=== PATIENT | female | born 1960 | race Caucasian/White ===

== ENCOUNTER 2016-08-20 03:02 | Observation (INO) | payer BC ==
[~2016-08-20] VITALS: Ht 165.1 cm; Wt 75.0 kg
[~2016-08-20 03:02] MED LIST: ASPEC81 PO; CALCTAB13 PO; CHOL400C7 PO; ELET40TA PO; FISHOIL PO; GLIP10TA9 PO; GLIP5TAB3 PO; METF750T PO; MULTTAB58 PO; SYN75 PO; TRAZ150T64 PO
[2016-08-20] MEDS ORDERED: ASPIRIN 324 MG CHEW PO STA (03:15)
[2016-08-20] MEDS ORDERED: NITROGLYCERIN 0.4 MG SL PER TAB CHARGE SL PRN ×2 (03:15→07:45)
[2016-08-20] MEDS ORDERED: NITROGLYCERIN 0.4 MG SL PER TAB CHARGE SL STA (03:15)
--- NOTE | 2016-08-20 03:28 | EMERGENCY ROOM VISIT NOTE ---
History Report prepared by Debbi: Xavier Jansen Under the Supervision of: Dr. Tyree Cuadra M.D. First contact with patient: 03:06 Chief Complaint: CHEST PAIN Stated Complaint: CHEST PAIN Nursing Triage Summary: c/o mid cp that when she woke around midnight she took tums for, then she went back to sleep and woke again and took more tums. pain has not went away History of Present Illness The patient is a 56 year old female who presents to the Emergency Room with complaints of persistent chest pain that started a few hours ago. The patient notes that she woke up on the couch and felt some discomfort in the center of her chest that radiated to the side of her chest. She took Tums thinking she might have some indigestion. She notes when she sometimes gets indigestion, Tums usually helps. However, they did not help relieve her symptoms this morning. She also notes that she was feeling shaky and cold and decided to present to the ED for further evaluation. She describes the discomfort as a pressure with intermittent sharp pains. She notes the discomfort is worsened with deep breaths. She notes recent travel to [place] and [facility]. Her mother has a history of blood clots, but the patient has no history. Source of History: patient Onset: a few hours ago Position: chest Quality: pressure, sharp (intermittently) Timing: other (persistent) Modifying Factors (Worsening): breathing (deep breaths) Note: Other associated symptoms: shaky and cold Review of Systems See HPI for pertinent positives & negatives. A total of 10 systems reviewed and were otherwise negative. Past Medical & Surgical Medical Problems: (1) Diab Almita Wo Compl, Type Ii Or Unspec Type, Not Uncntrld (2) Endometriosis (3) Fibromyalgia (4) Migraines Surgical Problems: (1) H/O breast biopsy (2) H/O: hysterectomy Family History Cancer Social History Smoking Status: Never Smoker Alcohol Use: occasionally Marital Status: Occupation Status: employed Current/Historical Medications Scheduled Aspirin (Aspirin Ec), 81 MG PO DAILY Calcium/Vitamin D (Os-Yair 500 Plus D), 2 TAB PO DAILY Cholecalciferol (Vitamin D 400 Iu), 400 INTER.UNIT PO DAILY Eletriptan (Relpax), 40 MG PO DIRECTED Fish Oil ([place]-3), 1 CAP PO DAILY Glipizide (Glucotrol), 5 MG PO prior to dinner Glipizide (Glucotrol), 10 MG PO before breakfast Levothyroxine Sodium (Synthroid), 75 MCG PO DAILY Meloxicam (Meloxicam), 15 MG PO DAILY Metformin Hcl (Glucophage Er), 1,500 MG PO BID Multiple Vitamin (Multivitamin), 1 TAB PO DAILY Scheduled PRN Trazodone HCl (Trazodone HCl), 75 MG PO HS PRN for Sleep Allergies Coded Allergies: Latex1 -Allergic Contact Dermititis (Verified Allergy, Unknown, RED ALBARADO , 08/20/16) Lidocaine (Verified Allergy, Unknown, "NOVOCAINE", 08/20/16) Morphine and Related (Verified Allergy, Unknown, GI SYMPTOMS, 08/20/16) Procaine (Verified Allergy, Unknown, "NOVOCAINE", 08/20/16) Sulfa Drugs (Verified Allergy, Unknown, 08/20/16) Uncoded Allergies: NARCOTICS (Adverse Reaction, Intermediate, GI SYMPTOMS, 07/22/12) CAUSES N/V Physical Exam Vital Signs Date Time Temp Pulse Resp B/P Pulse Ox O2 Delivery O2 Flow Rate FiO2 08/20/16 05:02 78 18 100 Room Air 08/20/16 04:58 96/62 08/20/16 04:32 78 13 08/20/16 04:28 110/59 08/20/16 04:02 78 15 08/20/16 03:58 128/58 08/20/16 03:51 129/67 08/20/16 03:32 96 10 08/20/16 03:25 81 08/20/16 03:08 36.6 87 10 158/79 96 Room Air 08/20/16 03:08 158/79 Physical Exam GENERAL: Patient is in mild distress, anxious-appearing. HEENT: No acute trauma, normocephalic atraumatic, mucous membranes moist, no nasal congestion, no scleral icterus. NECK: No stridor, no adenopathy, no meningismus, trachea is midline. LUNGS: No dyspnea. Clear to auscultation and equal bilaterally. No wheeze, no rhonchi. HEART: Regular rate and rhythm. No murmurs, rubs, gallops appreciated. ABDOMEN: Soft, nontender, bowel sounds positive, no masses appreciated, no peritonitis. BACK: No midline tenderness, no CVA tenderness EXTREMITIES: Normal motion all extremities, no cyanosis, no edema. NEUROLOGIC: Alert and oriented, no acute motor or sensory deficits, no focal weakness, cranial nerves grossly intact. SKIN: No rash, no jaundice, no diaphoresis. Medical Decision & Procedures ER Provider Diagnostic Interpretation: X ray results are stated below per my interpretation and the radiologist's interpretation. X ray results are stated below per my interpretation: Chest: 1 view: No infiltrate, no effusion, normal cardiac border. CTA CHEST: No evidence of acute pulmonary embolism. Thoracic aortic and main pulmonary artery normal in caliber. Heart normal in size, without pericardial effusion. Multicompartment mediastinal adenopathy. Clear lungs, without consolidation, effusion, or pneumothorax. Visualized upper abdomen demonstrates prior cholecystectomy. No acute osseous findings. Laboratory Results 08/20/16 03:21 Red Blood Count 4.61, Mean Corpuscular Volume 85.7, Mean Corpuscular Hemoglobin 29.7, Mean Corpuscular Hemoglobin Concent 34.7, Mean Platelet Volume 11.0, Neutrophils (%) (Auto) 47.1, Lymphocytes (%) (Auto) 39.9, Monocytes (%) (Auto) 8.2, Eosinophils (%) (Auto) 4.0, Basophils (%) (Auto) 0.4, Neutrophils # (Auto) 3.32, Lymphocytes # (Auto) 2.81, Monocytes # (Auto) 0.58, Eosinophils # (Auto) 0.28, Basophils # (Auto) 0.03 08/20/16 03:21 Test 08/20/16 03:21 08/20/16 04:17 White Blood Count 7.05 K/uL (4.8-10.8) Red Blood Count 4.61 M/uL (4.2-5.4) Hemoglobin 13.7 g/dL (12.0-16.0) Hematocrit 39.5 % (37-47) Mean Corpuscular Volume 85.7 fL (80-100) Mean Corpuscular Hemoglobin 29.7 pg (25-34) Mean Corpuscular Hemoglobin Concent 34.7 g/dl (32-36) Platelet Count 198 K/uL (130-400) Mean Platelet Volume 11.0 fL (7.4-10.4) Neutrophils (%) (Auto) 47.1 % Lymphocytes (%) (Auto) 39.9 % Monocytes (%) (Auto) 8.2 % Eosinophils (%) (Auto) 4.0 % Basophils (%) (Auto) 0.4 % Neutrophils # (Auto) 3.32 K/uL (1.4-6.5) Lymphocytes # (Auto) 2.81 K/uL (1.2-3.4) Monocytes # (Auto) 0.58 K/uL (0.11-0.59) Eosinophils # (Auto) 0.28 K/uL (0-0.5) Basophils # (Auto) 0.03 K/uL (0-0.2) RDW Standard Deviation 37.0 fL (36.4-46.3) RDW Coefficient of Variation 11.9 % (11.5-14.5) Immature Granulocyte % (Auto) 0.4 % Immature Granulocyte # (Auto) 0.03 K/uL (0.00-0.02) Anion Gap 11.0 mmol/L (3-11) Est Creatinine Clear Calc Drug Dose 64.4 ml/min Estimated GFR () 73.5 Estimated GFR (Non- 63.4 BUN/Creatinine Ratio 18.5 (10-20) Calcium Level 9.6 mg/dl (8.5-10.1) Total Creatine Kinase 70 U/L (26-192) Creatine Kinase MB 1.2 ng/ml (0.5-3.6) Creatine Kinase MB Ratio 1.7 (0-3.0) Troponin I < 0.015 ng/ml (0-0.045) Beta-Hydroxybutyric Acid 1.84 mg/dL (0.2-2.81) D-Dimer < 190 ug/L FEU (0-500) Laboratory results as reviewed by me. Medications Administered Medications (Trade) Dose Ordered Sig/Vivian Route Start Time Stop Time Status Last Admin Dose Admin Aspirin (Aspirin Chew) 324 mg NOW STAT PO 08/20/16 03:15 08/20/16 03:17 DC 08/20/16 03:15 324 MG Nitroglycerin (Nitrostat Tab) 0.4 mg PRN STAT SL 08/20/16 03:15 08/20/16 03:17 DC 08/20/16 03:15 0.4 MG Fentanyl Citrate (Fentanyl Inj) 75 mcg NOW STAT IV 08/20/16 03:39 08/20/16 03:41 DC 08/20/16 03:39 75 MCG Insulin Human Regular 4 units 4 units NOW STAT IV 08/20/16 04:42 08/20/16 04:43 DC 08/20/16 05:02 4 UNITS Sodium Chloride (Nss 1000ml) 1,000 ml @ 999 mls/hr Q1H1M STAT IV 08/20/16 04:42 08/20/16 05:42 DC 08/20/16 05:04 999 MLS/HR ECG Indication: chest pain Rate (beats per minute): 75 Rhythm: normal sinus Findings: no acute ischemic change, no ectopy Change: no significant change (similar morphology when compared to previous EKG ) ED Course 0310: The patient was evaluated in room B2. A complete history and physical exam was performed. 0315: Ordered Nitroglycerin 0.4 mg SL, Nitroglycerin 0.4 mg SL/ Chest pain, Aspirin 324 mg PO. 0337: At this time, I reevaluated the patient and she said she had an allergic reaction to the Nitro. She notes that her heart raced and she had tingling under her tongue. 0339: Ordered Fentanyl Inj 75 mcg IV. 0441: At this time, I reevaluated the patient and she feels much better. She notes her sugar has not been high recently and was surprised with the test results. 0442: Ordered NSS 1000 ml @ 999 mls/hr IV, Insulin Human Regular 4 units IV. 0524: I reevaluated the patient at this time and she is feeling better and in no distress. 0547: At this time, Dr. Madison - Hospitalist [facility] was made aware of the case and accepted the patient for further evaluation. Medical Decision Differential: Cardiac Ischemia (STEMI, NSTEMI, Unstable Angina, etc), Aortic Dissection, Arrhythmia, Pulmonary Embolism, Pneumonia, Pneumothorax, MSK, Infectious, Pericarditis/Myocarditis, Esophageal Rupture, Gastrointestinal, amongst other pathologies entertained. 56 yr old female arrives for substernal chest pain. Given ASA. Notes she can not tolerate another SLNTG after first dose thus given Fentanyl with resolution of symptoms. Already tried multiple Tums without any improvement. EKG looks OK and trop negative to start. Dimer negative thus with normal CXR and no further symptoms I do not feel that CT PE study necessary currently She is stable throughout ED stay. With multiple cardiac risk factors she will need further cardiac rule out than possible in ED. Consults Time Called: 05 Consulting Physician: Dr. Madison - Hospitalist [facility] Returned Call: [phone] At this time, Dr. Madison was made aware of the case and accepted the patient for further evaluation. Impression Primary Impression: Substernal chest pain Additional Impression: Hyperglycemia Scribe Attestation The scribe's documentation has been prepared under my direction and personally reviewed by me in its entirety. I confirm that the note above accurately reflects all work, treatment, procedures, and medical decision making performed by me. Departure Information Dispostion Being Evaluated By Hospitalist Referrals Enid Huerta D.O. (PCP) Patient Instructions [facility] Problem Qualifiers
[2016-08-20 03:29] LABS: BASO % 0.4 %; BASO ABS # 0.03 K/uL (0-0.2); COMPLETE YES; HEMATOCRIT 39.5 % (37-47); IG% 0.4 %; LYMPH % 39.9 %; LYMPH ABS # 2.81 K/uL (1.2-3.4); MEAN CELL VOLUME 85.7 fL (80-100); MEAN CORPUSCULAR HEMOGLOBIN 29.7 pg (25-34); MEAN CORPUSCULAR HGB CONC 34.7 g/dl (32-36); MONO % 8.2 %; NEUT % 47.1 %; PLATELET COUNT 198 K/uL (130-400); RED BLOOD COUNT 4.61 M/uL (4.2-5.4); WHITE BLOOD COUNT 7.05 K/uL (4.8-10.8)
[2016-08-20] MEDS ORDERED: FENTANYL CITRATE INJ 50 MCG/1 ML 2 ML VIAL IV STA (03:39)
[2016-08-20 04:02] LABS: BLOOD UREA NITROGEN 19 mg/dl (7-18); BUN/CREATININE RATIO 18.5 (10-20); CALCIUM 9.6 mg/dl (8.5-10.1); CARBON DIOXIDE 27 mmol/L (21-32); CHLORIDE 99 mmol/L (98-107); GLUCOSE 338 mg/dl (70-99); POTASSIUM 4.2 mmol/L (3.5-5.1); SODIUM 137 mmol/L (136-145)
[2016-08-20 04:13] LABS: BETA-HYDROXYBUTYRATE 1.84 mg/dL (0.2-2.81); CKMB/CK RATIO 1.7 (0-3.0)
[2016-08-20] MEDS ORDERED: MELO15TA4 PO (04:30)
[2016-08-20] MEDS ORDERED: SYN75 PO (04:30)
[2016-08-20] MEDS ORDERED: DSY/150 PO (04:30)
[2016-08-20] MEDS ORDERED: ASPI81TA28 PO (04:31)
[2016-08-20] MEDS ORDERED: OMEG10007 PO (04:31)
[2016-08-20] MEDS ORDERED: CALC500C70 PO (04:31)
[2016-08-20] MEDS ORDERED: NovoLIN-R INSULIN PER UNIT CHARGE IV STA (04:42)
[2016-08-20] MEDS ORDERED: SODIUM CHLORIDE 0.9% 1000ML 1,000 ML IV STA (04:42)
[2016-08-20] MEDS ORDERED: OPTIRAY 320 IV PRN (05:45)
[2016-08-20] MEDS ORDERED: POLYETHYLENE (MIRALAX) 17 GM PACK PO PRN (07:45)
[2016-08-20] MEDS ORDERED: ONDANSETRON INJ 2 MG/ML 2 ML VIAL IV PRN (07:45)
[2016-08-20] MEDS ORDERED: ALUMINUM/MAGNESIUM/SIMETH (MAALOX MAX) 30 ML UDC PO PRN (07:45)
[2016-08-20] MEDS ORDERED: ACETAMINOPHEN 325 MG TAB PO PRN (07:45)
[2016-08-20] MEDS ORDERED: MAGNESIUM HYDROXIDE SUSP 30 ML UDC PO PRN (07:45)
[2016-08-20 07:50] VITALS: O2SAT 100; Ht 165.1 cm; Wt 75.0 kg
--- NOTE | 2016-08-20 07:55 | History and Physical ---
History & Physical Date & Time of Service: Aug 20, 2016 at 07:52 Chief Complaint: Chest Pain Primary Care Physician: Enid Huerta D.O. History of Present Illness Source: patient Ms. Blair is a 56 y/o female with PMHx of T2DM, Hypothyroidism, and S/P Cholecystectomy who presents to the ED complaining of persistent chest pain that started at approx. midnight on 08/20/16. She states she fell asleep on her couch and was sleeping with head elevated. When she woke up she noticed sternal chest pain with slight radiation to the R chest. She describes this pain as a pressure with intermittent sharp sensations. She says this felt like her normal indigestion and took Tums but did not get relief. She reports that she only needs Tums with indigestion in the past and these resolve the symptoms. She denies frequent heartburn. Aggravated with deep inspiration but cannot recall alleviating factors. When her symptoms did not resolve with Tums she decided to proceed to the ED. She does report associated feelings of cold and shakiness. She also reports this sensation is similar but not exact to the feelings she got prior to her cholecystectomy. She did recently travel to [place] and back. She says she did not have foods that normally cause her indigestion and does not report a missed dose of her oral anti-diabetics. She denies personal history of blood clots but FMHx significant for a mother with blood clots. In the ED, she was given NTG and ASA 324 mg. CXR without significant findings there is evidence of prominent hilar/pulmonary nodes which looks similar to previous CXR. CTA performed which does not show overt signs of PE but official report pending. EKG with NSR without evidence of ischemia. Glucose noted at 338 which she reports is not normally this high. She will be admitted to telemetry for ACS R/O. Past Medical/Surgical History Medical Problems: (1) Diab Almita Wo Compl, Type Ii Or Unspec Type, Not Uncntrld Status: Chronic (2) Endometriosis Status: Resolved (3) Fibromyalgia Status: Chronic (4) Migraines Status: Chronic Surgical Problems: (1) H/O breast biopsy Status: Resolved (2) H/O: hysterectomy Status: Resolved Family History Cancer Social History Smoking Status: Never Smoker Smokeless Tobacco Use: No Alcohol Use: socially Drug Use: none Marital Status: Housing status: lives with family Occupational Status: employed Immunizations History of Influenza Vaccine: Yes History of Tetanus Vaccine?: Yes History of Pneumococcal: No History of Hepatitis B Vaccine: Yes Multi-Drug Resistant Organisms History of MDRO: No Allergies Coded Allergies: Latex1 -Allergic Contact Dermititis (Verified Allergy, Unknown, RED ALBARADO , 08/20/16) Lidocaine (Verified Allergy, Unknown, "NOVOCAINE", 08/20/16) Morphine and Related (Verified Allergy, Unknown, GI SYMPTOMS, 08/20/16) Procaine (Verified Allergy, Unknown, "NOVOCAINE", 08/20/16) Sulfa Drugs (Verified Allergy, Unknown, 08/20/16) Uncoded Allergies: NARCOTICS (Adverse Reaction, Intermediate, GI SYMPTOMS, 07/22/12) CAUSES N/V Home Medications Scheduled Aspirin (Aspirin Ec), 81 MG PO DAILY Calcium/Vitamin D (Os-Yair 500 Plus D), 2 TAB PO DAILY Cholecalciferol (Vitamin D 400 Iu), 400 INTER.UNIT PO DAILY Eletriptan (Relpax), 40 MG PO DIRECTED Fish Oil ([place]-3), 1 CAP PO DAILY Glipizide (Glucotrol), 5 MG PO prior to dinner Glipizide (Glucotrol), 10 MG PO before breakfast Levothyroxine Sodium (Synthroid), 75 MCG PO DAILY Meloxicam (Meloxicam), 15 MG PO DAILY Metformin Hcl (Glucophage Er), 1,500 MG PO BID Multiple Vitamin (Multivitamin), 1 TAB PO DAILY Scheduled PRN Trazodone HCl (Trazodone HCl), 75 MG PO HS PRN for Sleep Review of Systems Constitutional: + chills (shaky and cold), + problem reported, No fever Eyes: No worsening of vision ENT: No nasal symptoms, No sore throat, No trouble swallowing Respiratory: No cough, No shortness of breath Cardiovascular: + chest pain (substernal with radiation to R chest; pressure with intermittent sharp), + palpitations (with throbbing sensation into neck after NTG SL dose) Abdomen: No constipation, No diarrhea, No nausea, No pain, No vomiting Musculoskeletal: No calf pain, No swelling Genitourinary - Female: No dysuria Neurologic: No numbness/tingling, No vertigo Hematologic / Lymphatic: No abnormal bleeding/bruising, No clotting problems Integumentary: No rash Physical Exam Vital Signs Date Time Temp Pulse Resp B/P Pulse Ox O2 Delivery O2 Flow Rate FiO2 08/20/16 07:00 87 16 08/20/16 05:02 78 18 100 Room Air 08/20/16 04:58 96/62 08/20/16 04:32 78 13 08/20/16 04:28 110/59 08/20/16 04:02 78 15 08/20/16 03:58 128/58 08/20/16 03:51 129/67 08/20/16 03:32 96 10 08/20/16 03:25 81 08/20/16 03:08 36.6 87 10 158/79 96 Room Air 08/20/16 03:08 158/79 General Appearance: WD/WN, no apparent distress Head: normocephalic, atraumatic Eyes: sclerae normal ENT: hearing grossly normal Neck: supple, no JVD, trachea midline Respiratory/Chest: lungs clear, normal breath sounds, no respiratory distress, no accessory muscle use Cardiovascular: regular rate, rhythm, no gallop, no murmur Abdomen/GI: normal bowel sounds, non tender, soft Back: normal inspection, no CVA tenderness Extremities/Musculoskelatal: no calf tenderness, no pedal edema Neurologic/Psych: alert, oriented x 3 Skin: normal color, warm/dry Diagnostics Laboratory Results Results Past 24 Hours Test 08/20/16 03:21 08/20/16 04:17 Range/Units White Blood Count 7.05 4.8-10.8 K/uL Red Blood Count 4.61 4.2-5.4 M/uL Hemoglobin 13.7 12.0-16.0 g/dL Hematocrit 39.5 37-47 % Mean Corpuscular Volume 85.7 80-100 fL Mean Corpuscular Hemoglobin 29.7 25-34 pg Mean Corpuscular Hemoglobin Concent 34.7 32-36 g/dl Platelet Count 198 130-400 K/uL Mean Platelet Volume 11.0 7.4-10.4 fL Neutrophils (%) (Auto) 47.1 % Lymphocytes (%) (Auto) 39.9 % Monocytes (%) (Auto) 8.2 % Eosinophils (%) (Auto) 4.0 % Basophils (%) (Auto) 0.4 % Neutrophils # (Auto) 3.32 1.4-6.5 K/uL Lymphocytes # (Auto) 2.81 1.2-3.4 K/uL Monocytes # (Auto) 0.58 0.11-0.59 K/uL Eosinophils # (Auto) 0.28 0-0.5 K/uL Basophils # (Auto) 0.03 0-0.2 K/uL RDW Standard Deviation 37.0 36.4-46.3 fL RDW Coefficient of Variation 11.9 11.5-14.5 % Immature Granulocyte % (Auto) 0.4 % Immature Granulocyte # (Auto) 0.03 0.00-0.02 K/uL Sodium Level 137 136-145 mmol/L Potassium Level 4.2 3.5-5.1 mmol/L Chloride Level 99 98-107 mmol/L Carbon Dioxide Level 27 21-32 mmol/L Anion Gap 11.0 3-11 mmol/L Blood Urea Nitrogen 19 7-18 mg/dl Creatinine 1.00 0.60-1.20 mg/dl Est Creatinine Clear Calc Drug Dose 64.4 ml/min Estimated GFR () 73.5 Estimated GFR (Non- 63.4 BUN/Creatinine Ratio 18.5 10-20 Random Glucose 338 70-99 mg/dl Calcium Level 9.6 8.5-10.1 mg/dl Total Creatine Kinase 70 26-192 U/L Creatine Kinase MB 1.2 0.5-3.6 ng/ml Creatine Kinase MB Ratio 1.7 0-3.0 Troponin I < 0.015 0-0.045 ng/ml Beta-Hydroxybutyric Acid 1.84 0.2-2.81 mg/dL D-Dimer < 190 0-500 ug/L FEU EKG Normal sinus rhythm Low voltage QRS Borderline ECG When compared with ECG of 28-AUG-2014 07:20, No significant change was found Impression Assessment and Plan Ms. Blair is a 56 y/o female with PMHx of T2DM, Hypothyroidism, and S/P Cholecystectomy who presents to the ED complaining of persistent chest pain that started at approx. midnight on 08/20/16. Chest Pain: R/O ACS - Possible GI vs Hyperglycemia - CTA - image reviewed with report pending - no overt signs of PE - Serial cardiac enzymes - negative to date - Nitro SL PRN - ASA 81 mg daily - Protonix 40 mg daily - Stress test Hyperglycemia with T2DM: HbA1c 10.4 (Mar 2016) - Suggests poorly controlled - will repeat A1c - Hold Metformin and Glipizide due to IV contrast for CTA - will need Metformin held x 48 hours - NSS 100 mL/hr x 1 - SSI with goal 100-150 and correction factor 35 DVT Prophylaxis: - TUAN/SCDs Code Status: - FULL RESUSCITATION Disposition: - CP R/O - Concern for prominent hilar/mediastinal lymphadenopathy - outpatient F/U Level of Care Telemetry Resuscitation Status FULL RESUSCITATION VTE Prophylaxis VTE Risk Assessment Done? Y/N: Yes Risk Level: Moderate Given or contraindicated: T.E.D. Stockings, SCD's
[2016-08-20] MEDS ORDERED: IV FLUIDS COMPLETED PRN (08:00)
[2016-08-20] MEDS ORDERED: SODIUM CHLORIDE 0.9% 1000ML 1,000 ML IV SCH (08:00)
[2016-08-20 08:57] VITALS: O2SAT 97
--- NOTE | 2016-08-20 09:00 | DIAGNOSTIC IMAGING REPORT ---
CHEST ONE VIEW PORTABLE CLINICAL HISTORY: Chest pain. COMPARISON STUDY: Chest radiograph August 27, 2014 and FINDINGS: Lung volumes are normal. Lungs are clear. There is no pneumothorax or pleural effusion. Cardiac size is normal. Mediastinal contours are normal. The appearance of the chest is unchanged. IMPRESSION: No acute cardiopulmonary findings. Electronically signed by: eHrnesto Dominguez M.D. 08/20/2016 8:59 AM Dictated Date/Time: 08/20/2016 8:58 AM
[2016-08-20 09:15] VITALS: BP 143/78; PULSE 76; TEMP 36.6; O2SAT 96
--- NOTE | 2016-08-20 10:08 | DIAGNOSTIC IMAGING REPORT ---
CT ANGIOGRAPHY OF THE CHEST, PULMONARY EMBOLUS PROTOCOL CLINICAL HISTORY: Chest pain. COMPARISON STUDY: Chest CT April 24, 2012. TECHNIQUE: Following IV administration of 88 mL of [id number]-[id number], helical axial images of the chest were obtained utilizing the pulmonary embolus protocol. Maximal intensity projections and sagittal and coronal reformats were viewed on an independent 3D workstation. IV contrast was administered without complication. CT DOSE: 408.32 mGy.cm FINDINGS: No pulmonary emboli are identified. The size of the heart is normal. There is no evidence of thoracic aortic dissection. Central airways are patent. No consolidation is identified to suggest pneumonia. There is no pneumothorax or pleural effusion. No enlarged thoracic lymph nodes are present. Bony thorax is unremarkable. Dependent airspace opacity suggest atelectasis. There are few calcified granulomas. There is fatty infiltration of the liver. The gallbladder is surgically absent. IMPRESSION: 1. No pulmonary emboli identified. 2. No acute intrathoracic findings. 3. Fatty liver. Electronically signed by: Hernesto Dominguez M.D. 08/20/2016 10:06 AM Dictated Date/Time: 08/20/2016 9:58 AM
[2016-08-20] MEDS ORDERED: GLUCAGON FOR INJ 1 MG VIAL SQ PRN (10:30)
[2016-08-20] MEDS ORDERED: DEXTROSE 50% 50 ML SYR IV PRN (10:30)
[2016-08-20] MEDS ORDERED: GLUCOSE 40% GEL 15 GM TUBE PO PRN (10:30)
[2016-08-20] MEDS ORDERED: GLUCOSE 10 TABS/TUBE PO PRN (10:30)
[2016-08-20 10:39] LABS: CKMB/CK RATIO 1.1 (0-3.0)
[2016-08-20] MEDS ORDERED: ASPIRIN 81 MG ECTAB PO SCH (10:45)
[2016-08-20] MEDS ORDERED: LEVOTHYROXINE 75 MCG TAB PO SCH (10:45)
[2016-08-20 11:21] VITALS: BP 115/71; PULSE 90; TEMP 36.8; O2SAT 95
[2016-08-20] MEDS: INSULIN ASPART 100 UNITS/ML 3 ML PEN SC SCH ×2 (12:03→17:09)
[2016-08-20 15:03] VITALS: BP 135/72; PULSE 101; TEMP 36.7; O2SAT 94
--- NOTE | 2016-08-20 15:06 | Discharge Instructions ---
Discharge Instructions Admission Reason for Admission: Substernal Chest Pain Discharge Discharge Diagnosis / Problem: Chest pain, non-cardiac Discharge Goals Goal(s): Decrease discomfort, Improve function Activity Recommendations Activity Limitations: resume your previous activity Lifting Limitations: none Exercise/Sports Limitations: as tolerated May Resume Sexual Activity: when tolerated Shower/Bathe: no limitations Driving or Machine Use: no limitations . Instructions / Follow-Up Instructions / Follow-Up Medications: no changes In summary, you presented with chest pain. Your EKG was normal and your heart enzymes were negative for 3 sets ruling out an acute heart attack. CT of your chest ruled out a pulmonary embolism and there were no other abnormalities in the chest to explain the pain. I feel that the pain could either be indigestion that did not respond to Tums or musculoskeletal pain secondary to fibromyalgia. If the pain returns, I would recommend using Protonix 40mg daily x 14 days and then stop. I will give you a script but you don't need to get filled unless the pain returns. Also, you could try using Tylenol and ibuprofen (with food) for the pain. FOLLOW UP - if the pain stays away, there is no need for urgent hospital follow up - however, I would schedule an appointment with Dr. Huerta within the next few weeks to discuss elevated blood sugars Current Hospital Diet Patient's current hospital diet: Diabetes Type 2 Diet Discharge Diet Recommended Diet: Diabetes Type 2 Diet Pending Studies Studies pending at discharge: no Laboratory Results Last Resulted CBC 08/20/16 03:21 Red Blood Count 4.61, Mean Corpuscular Volume 85.7, Mean Corpuscular Hemoglobin 29.7, Mean Corpuscular Hemoglobin Concent 34.7, Mean Platelet Volume 11.0, Neutrophils (%) (Auto) 47.1, Lymphocytes (%) (Auto) 39.9, Monocytes (%) (Auto) 8.2, Eosinophils (%) (Auto) 4.0, Basophils (%) (Auto) 0.4, Neutrophils # (Auto) 3.32, Lymphocytes # (Auto) 2.81, Monocytes # (Auto) 0.58, Eosinophils # (Auto) 0.28, Basophils # (Auto) 0.03 Last Resulted BMP 08/20/16 03:21 Hemoglobin A1c Test 08/20/16 03:21 Range/Units Medical Emergencies . Who to Call and When: Medical Emergencies: If at any time you feel your situation is an emergency, please call 911 immediately. . Non-Emergent Contact Non-Emergency issues call your: Primary Care Provider Call Non-Emergent contact if: your pain is not controlled, your pain is worsening, your pain is unusual for you, your pain is concerning you, you have any medication questions . . "Provider Documentation" section prepared by Phillip Parson. VTE Core Measure Inpt VTE Proph given/why not?: JOAN Mckee's [place] Drug Monitoring Program Search Results: no issues identified
[2016-08-20 16:07] LABS: CKMB/CK RATIO 2.3 (0-3.0)
[2016-08-20 16:27] VITALS: BP 135/72; PULSE 101; TEMP 36.7; O2SAT 94
--- NOTE | 2016-08-20 16:48 | Discharge Summary ---
Discharge Summary Admission Date: Aug 20, 2016 at 07:48 Discharge Date: Aug 20, 2016 Discharge Disposition: Home Principal Diagnosis: Chest pain, non-cardiac Problems/Secondary Diagnoses: GERD, suspected fibromyalgia DM with hyperglycemia Immunizations: Have You Had Influenza Vaccine: Yes History of Tetanus Vaccine?: Yes History of Pneumococcal: No History of Hepatitis B Vaccine: Yes Procedures: none Consultations: none Medication Reconciliation Continued Medications: Aspirin (Aspirin Ec) 81 Mg Tab 81 MG PO DAILY Calcium/Vitamin D (Os-Yair 500 Plus D) Tab 2 TAB PO DAILY, TAB Cholecalciferol (Vitamin D 400 Iu) 400 Unit Cap 400 INTER.UNIT PO DAILY, CAP Eletriptan (Relpax) 40 Mg Tab 40 MG PO DIRECTED, TAB take 1 tablet at onset of migraine. may repeat once after 2 hours. max 2 doses in 24 hours. Fish Oil ([place]-3) 1 Ea Cap 1 CAP PO DAILY Glipizide (Glucotrol) 5 Mg Tab 5 MG PO prior to dinner, TAB Glipizide (Glucotrol) 10 Mg Tab 10 MG PO before breakfast, TAB Levothyroxine Sodium (Synthroid) 75 Mcg Tab 75 MCG PO DAILY Meloxicam (Meloxicam) 15 Mg Tab 15 MG PO DAILY Metformin Hcl (Glucophage Er) 750 Mg Tab 1500 MG PO BID, #60 Multiple Vitamin (Multivitamin) 1 Tab Tab 1 TAB PO DAILY, TAB Trazodone HCl (Trazodone HCl) 150 Mg Tab 75 MG PO HS PRN for Sleep Discharge Exam Patient fell asleep and when she woke, no further chest pain. Doing well, no other complaints. She would like to go home. Review of Systems: Constitutional: No chills, No fatigue, No fever, No problem reported, No sweats, No weakness, No weight loss Eyes: No diplopia, No discharge, No eye pain, No problem reported, No redness, No worsening of vision ENT: No dental problems, No hearing loss, No nasal symptoms, No problem reported, No sore throat, No tinnitus, No trouble swallowing, No unusual epistaxis Respiratory: No cough, No dyspnea at rest, No dyspnea on exertion, No hemoptysis, No problem reported, No shortness of breath, No sputum, No wheezing Cardiovascular: No PND, No chest pain, No claudication, No edema, No orthopnea, No palpitations, No problem reported Abdomen: No GI bleeding, No constipation, No diarrhea, No nausea, No pain, No problem reported, No vomiting Musculoskeletal: No calf pain, No joint pain, No muscle pain, No problem reported, No swelling Genitourinary - Female: No dysuria, No urinary frequency, No urinary incontinence, No urinary urgency Neurologic: No balance problems, No memory loss, No numbness/tingling, No paralysis, No problem reported, No vertigo, No weakness Psychiatric: No anhedonism, No anxiety, No depression symptoms, No insomnia , No problem reported, No substance abuse Endocrine: No excessive thirst, No excessive urination, No fatigue, No problem reported Hematologic / Lymphatic: No abnormal bleeding/bruising, No clotting problems , No night sweats, No problem reported, No swollen lymph nodes Integumentary: No bleeding, No color change, No itch, No new/changing skin lesions, No problem reported, No rash Physical Exam: General Appearance: WD/WN, no apparent distress Eyes: normal inspection, EOMI, sclerae normal ENT: normal ENT inspection, hearing grossly normal, pharynx normal Neck: supple, no adenopathy, no JVD, trachea midline Respiratory/Chest: chest non-tender, lungs clear, normal breath sounds, no respiratory distress, no accessory muscle use Cardiovascular: regular rate, rhythm, no edema, no gallop, no JVD, no murmur , normal peripheral pulses Abdomen / GI: normal bowel sounds, non tender, soft, no organomegaly Extremities: normal inspection, no calf tenderness, normal capillary refill , no pedal edema, normal range of motion, pelvis stable 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 Blair is a 56 y/o female with PMHx of T2DM, Hypothyroidism, and S/P Cholecystectomy who presents to the ED complaining of persistent chest pain that started at approx. midnight on 08/20/16. Chest Pain: R/O ACS - Possible GI vs Hyperglycemia - CTA - no PE, no adenopathy - troponin negative x 3 and EKG normal, thus ruling out ACS - Nitro SL PRN - ASA 81 mg daily - Protonix 40 mg daily discussed with patient, feel that pain most likely GERD or fibromyalgia if pain returns, recommend using Protonix 40mg daily x 2 weeks to see if pain completely resolves will follow up with PCP Hyperglycemia with T2DM: HbA1c 10.4 (Mar 2016) - Suggests poorly controlled - need follow up with PCP to discuss further treatment - continue Metformin and Glipizide - NSS 100 mL/hr x 1 - SSI with goal 100-150 and correction factor 35 DVT Prophylaxis: - TUAN/SCDs Code Status: - FULL RESUSCITATION Disposition: - d/c to home with PCP follow up Total Time Spent: Greater than 30 minutes This includes examination of the patient, discharge planning, medication reconciliation, and communication with other providers. Discharge Instructions Please refer to the electronic Patient Visit Report (Discharge Instructions) for additional information. Follow-Up Deanna Additional Copies To Enid Huerta D.O.
[2016-08-21 06:29] LABS: ESTIMATED AVERAGE GLUCOSE 266 mg/dl; HA1C FLAG Normal (Normal)
[2016-08-21] MEDS ORDERED: PANTOprazole SOD 40 MG TAB PO SCH (09:00)
[2017-03-09] MEDS ORDERED: TRAZ1TAB52 PO (15:33)
[2017-03-09] MEDS ORDERED: EXEN1INJ3 SC (15:33)
[2017-03-09] MEDS ORDERED: METF750T PO (15:33)
== END 2016-08-20 17:41 | disposition home or self-care (01) ==
LOC: ENRESERVDT → ENRESERVTM → C.EDB 03:02 → C.2T 07:48
PROVIDERS: ADMIT Internal Medicine; ATTEND Internal Medicine
DX: R07.89 Other chest pain (principal); E03.9 Hypothyroidism, unspecified; E11.65 Type 2 diabetes mellitus with hyperglycemia; M79.7 Fibromyalgia; N80.9 Endometriosis, unspecified; G43.909 Migraine, unspecified, not intractable, without status migrainosus; K21.9 Gastro-esophageal reflux disease without esophagitis

== ENCOUNTER → 2016-10-11 | Outpatient (CLI) | payer BC ==
[~2016-10-11] MED LIST changes: -ASPEC81 PO; +ASPI81TA28 PO; +CALC500C70 PO; -CALCTAB13 PO; +DSY/150 PO; +EXEN1INJ3 SC; -FISHOIL PO; +MELO15TA4 PO; +OMEG10007 PO; -TRAZ150T64 PO; +TRAZ1TAB52 PO
--- NOTE | 2016-10-11 16:24 | DIAGNOSTIC IMAGING REPORT ---
RIGHT SHOULDER MIN 2 VIEWS ROUTINE CLINICAL HISTORY: PAIN IN RIGHT SHOULDER Right trauma. Pain. COMPARISON: None. DISCUSSION: The bones and joint spaces appear intact. There is no evidence of fracture, dislocation or bony disease. There is no evidence for soft tissue swelling. IMPRESSION: Negative study. Electronically signed by: Deep Roth M.D. 10/11/2016 4:22 PM Dictated Date/Time: 10/11/2016 4:22 PM
== END | disposition home or self-care (01) ==
LOC: C.RAD 15:52
PROVIDERS: ATTEND Nurse Practitioner Family
DX: M25.511 Pain in right shoulder (principal)

== ENCOUNTER → 2016-12-05 | Outpatient (CLI) | payer BC ==
--- NOTE | 2016-12-05 19:28 | DIAGNOSTIC IMAGING REPORT ---
RIGHT FOOT 3 VIEWS CLINICAL HISTORY: Right foot injury. FINDINGS: 3 views of the right foot are compared to study dated to. The skeletal structures are osteopenic. No fracture is identified. There is mild hallux valgus with degenerative sclerosis and bony overgrowth seen at the first metatarsophalangeal joint. The joint spaces of the foot are otherwise well-maintained. A large plantar calcaneal enthesophyte is observed and there is degenerative spurring along the dorsal aspect of the tarsal bones. Mild soft tissue swelling is present along the dorsal aspect of the foot. IMPRESSION: 1. Mild dorsal soft tissue swelling with no acute bony abnormality identified. 2. Osteopenia, hallux valgus, heel spur, and mild arthritic change as above. Electronically signed by: Roel Reyna M.D. 12/05/2016 7:26 PM Dictated Date/Time: 12/05/2016 7:24 PM
== END | disposition home or self-care (01) ==
LOC: C.RAD 19:00
PROVIDERS: ATTEND Nurse Practitioner
DX: S90.31XA Contusion of right foot, initial encounter (principal); X58.XXXA Exposure to other specified factors, initial encounter; M85.871 Other specified disorders of bone density and structure, right ankle and foot; M20.11 Hallux valgus (acquired), right foot; M77.31 Calcaneal spur, right foot

== ENCOUNTER → 2016-12-14 | Outpatient (CLI) | payer BC ==
--- NOTE | 2016-12-14 10:26 | DIAGNOSTIC IMAGING REPORT ---
RIGHT FOOT MIN 3 VIEWS CLINICAL HISTORY: Right foot pain status post trauma COMPARISON: 12/05/2016 DISCUSSION: There is a hallux valgus deformity. Degenerative changes are present the level the first metatarsal phalangeal joint. No fractures or dislocations are visualized. There is a plantar calcaneal spur. IMPRESSION: No change the prior study. No acute or healing fractures. Electronically signed by: Hernando Hallman M.D. 12/14/2016 10:24 AM Dictated Date/Time: 12/14/2016 10:23 AM
== END | disposition home or self-care (01) ==
LOC: C.RDSM 10:07
PROVIDERS: ATTEND Family Medicine
DX: S99.921A Unspecified injury of right foot, initial encounter (principal); X58.XXXA Exposure to other specified factors, initial encounter

== ENCOUNTER → 2017-03-16 | Outpatient (CLI) | payer BC ==
[~2017-03-16] MED LIST changes: -DSY/150 PO; -GLIP10TA9 PO; -GLIP5TAB3 PO; -MELO15TA4 PO
[2017-03-16 09:35] LABS: BASO % 0.4 %; BASO ABS # 0.02 K/uL (0-0.2); COMPLETE YES; EOS % 2.1 %; HEMATOCRIT 38.9 % (37-47); IG% 0.4 %; LYMPH % 27.3 %; MEAN CELL VOLUME 88.4 fL (80-100); MEAN CORPUSCULAR HEMOGLOBIN 30.7 pg (25-34); MEAN CORPUSCULAR HGB CONC 34.7 g/dl (32-36); MEAN PLATELET VOLUME 10.8 fL (7.4-10.4); MONO % 8.6 %; NEUT % 61.2 %; PLATELET COUNT 197 K/uL (130-400); WHITE BLOOD COUNT 5.13 K/uL (4.8-10.8)
[2017-03-16 09:57] LABS: BLOOD UREA NITROGEN 11 mg/dl (7-18); BUN/CREATININE RATIO 12.4 (10-20); CALCIUM 9.3 mg/dl (8.5-10.1); CARBON DIOXIDE 29 mmol/L (21-32); CHLORIDE 99 mmol/L (98-107); CREATININE 0.87 mg/dl (0.60-1.20); GLUCOSE 272 mg/dl (70-99); POTASSIUM 4.2 mmol/L (3.5-5.1); SODIUM 135 mmol/L (136-145)
== END | disposition home or self-care (01) ==
LOC: C.LAB 07:26
PROVIDERS: ATTEND Orthopaedic Surgery
DX: Z01.810 Encounter for preprocedural cardiovascular examination (principal); Z01.812 Encounter for preprocedural laboratory examination; M75.01 Adhesive capsulitis of right shoulder; I49.3 Ventricular premature depolarization

== ENCOUNTER → 2017-03-29 | Day surgery (SDC) | payer BC ==
[2017-03-09 15:34] VITALS: Ht 166.4 cm; Wt 74.1 kg
[~2017-03-29] VITALS: Ht 166.4 cm; Wt 74.1 kg
[~2017-03-29] MED LIST changes: +ATROPINE SULFATE 0.1 MG/ML 5ML SYR IV PRN; +BUPIVACAINE/EPINEPHRINE 0.25% 1:200,000 30 ML VIAL ONE; +CEFAZOLIN 2000 MG/60 ML D5W IV SCH; +DEXAMETHASONE SOD INJ 4 MG/ML VIAL ONE; +EpHEDrine SULFATE INJ 50 MG/ML AMP IV PRN; +EpINEphrine INJ 1MG/ML AMP 1 MG/ML AMP ONE; +FENTANYL CITRATE INJ 50 MCG/1 ML 2 ML VIAL ONE; +LACTATED RINGER'S 1000ML 1,000 ML IV SCH; +METHYLPREDNISOLONE ACETATE 80 MG/ML VIAL ONE; +MIDAZOLAM HCL 1 MG/ML 2ML VIAL ONE; +NURSING VERBAL MED ORDER ONE; +ONDANSETRON INJ 2 MG/ML 2 ML VIAL IV PRN; +ONDANSETRON INJ 2 MG/ML 2 ML VIAL ONE; +PROPOFOL IV EMULSION 10 MG/ML 20 ML VIAL IV ONE; +ROPIVACAINE 0.5% 5 MG/ML 30 ML VIAL ONE; +SODIUM CHLORIDE 0.9% 1000ML 1,000 ML IV SCH; +TRAMADOL HCL 50 MG TAB PO PRN
--- NOTE | 2017-03-29 10:46 | History & Physical Bridge - SC ---
H&P Re-Evaluation Bridge Note: I have examined the patient, reviewed the History & Physical and in the interval since the performance of the History & Physical I have noted the following changes of clinical significance: No changes noted
--- NOTE | 2017-03-29 14:04 | Discharge Instructions-SurgCtr ---
Discharge Instructions Date of Service Mar 29, 2017. Visit Reason for Visit: Right Shoulder Adhesive Capsulitis Discharge Discharge Diagnosis / Problem: SAME ABOVE Discharge Goals Goal(s): Decrease discomfort, Improve function Medications Stopped Medications Name(s): Pt. was told to stop Metformin x 2 days - not to take any ASA, NSAIDS, VITAMINS and FISH OIL before surgery. Restart Stopped Medication(s): MAY RESTART 03/29/2017 Activity Recommendations Activity Limitations: as noted below Lifting Limitations: gradually increase as tolerated Exercise/Sports Limitations: gradually increase as tolerated Shower/Bathe: tomorrow Anesthesia . Post Anesthesia Instructions: If you have had General Anesthesia or IV Sedation: * Do not drive today. * Resume driving when surgeon permits. * Do not make important decisions or sign legal documents today. * Call surgeon for: 1. Temperature elevations greater than 101 degrees F. 2. Uncontrollable pain. 3. Excessive bleeding. 4. Persistent nausea and vomiting. 5. Medication intolerance (nausea, vomiting or rash). * For nausea and vomiting use only clear liquids such as: tea, soda, bouillon until nausea subsides, then gradually increase diet as tolerated. * If you have any concerns or questions, call your surgeon's office. If physician is unavailable and it is an emergency, call 911 or go to the nearest emergency room. . Instructions / Follow-Up Instructions / Follow-Up MEDICATIONS: * Resume previous medications unless instructed otherwise by your surgeon. * Always take pain medication on a full stomach or with food to avoid upset stomach. * Do not drink alcohol or drive while taking narcotics. * Ibuprofen or Tylenol may be taken if narcotic not needed. SPECIAL CARE INSTRUCTIONS: __ None _X_ Keep extremity elevated and iced x 48 hours; apply ice 20-30 minutes 8-10 times/day. May remove at night. _X_ Sling (WEAR ONLY NEEDED FOR COMFORT) __24 hrs/day __ Remove at night __ Shoulder Immobilizer __ 24 hrs/day __ Remove at night _X_ Dressing __ Maintain until seen in office, may shower with plastic over site _X_ Remove dressings in 24-48 hours and then may shower _X_ Cover incisions with band-aids after showering __ Do not remove steri-strips Call physician if chills or temperature rises above 102 degrees or pain unrelieved by prescribed pain medications at . . Diet Recommendations Home Diet: no limitations Fluid Restriction: None Procedures Procedures Performed: Right Shoulder Arthroscopic Capsular Release Pending Studies Studies pending at discharge: no Work Instructions Return To Work: 3 days (WHEN PAIN IS CONTROLLED ) Medical Emergencies . Who to Call and When: Medical Emergencies: If at any time you feel your situation is an emergency, please call 911 immediately. . Non-Emergent Contact Non-Emergency issues call your: Primary Care Provider Call Non-Emergent contact if: you have a fever, temperature is above 101.5 . . "Provider Documentation" section prepared by Trevin Conway. .
[2017-03-29 15:00] VITALS: TEMP 36.9
--- NOTE | 2017-03-29 15:07 | Anesthesiology Progress Note ---
Anesthesia Post Op Note Date & Time Mar 29, 2017 at 15:07 Vital Signs Pain Intensity: 2 Vital Signs Past 12 Hours Date Time Temp Pulse Resp B/P (MAP) Pulse Ox O2 Delivery O2 Flow Rate FiO2 03/29/17 14:51 125/83 03/29/17 14:50 36.7 84 16 125/83 97 Room Air 03/29/17 14:48 70 10 03/29/17 14:48 71 10 96 03/29/17 14:46 132/65 03/29/17 14:43 69 7 100 03/29/17 14:43 70 7 03/29/17 14:42 69 4 100 03/29/17 14:42 68 4 03/29/17 14:41 122/65 03/29/17 14:37 84 14 97 03/29/17 14:37 83 14 03/29/17 14:36 132/66 03/29/17 14:32 72 12 100 03/29/17 14:32 73 12 03/29/17 14:31 134/70 03/29/17 14:28 70 7 100 03/29/17 14:28 70 7 03/29/17 14:26 123/65 03/29/17 14:23 76 13 100 03/29/17 14:23 75 13 03/29/17 14:18 80 16 03/29/17 14:18 79 16 100 03/29/17 14:16 128/70 03/29/17 14:13 78 15 100 03/29/17 14:13 79 15 03/29/17 14:11 129/64 03/29/17 14:08 91 22 100 03/29/17 14:08 91 22 03/29/17 14:06 135/65 03/29/17 14:04 137/65 03/29/17 14:03 36.3 95 12 137/65 100 Diffusion Mask 6 03/29/17 14:03 113 03/29/17 14:03 113 98 03/29/17 13:21 120/55 03/29/17 13:19 86 03/29/17 13:19 84 5 95 03/29/17 13:16 136/76 03/29/17 13:14 93 23 100 03/29/17 13:14 94 03/29/17 13:12 149/107 03/29/17 13:09 91 0 03/29/17 13:04 98 0 03/29/17 12:59 89 0 03/29/17 12:54 85 0 03/29/17 12:49 92 0 03/29/17 12:44 91 0 03/29/17 12:39 90 0 03/29/17 12:34 88 0 03/29/17 10:29 36.5 87 16 133/81 (98) 98 Room Air Notes Mental Status: alert / awake / arousable, participated in evaluation Pt Amnestic to Procedure: Yes Nausea / Vomiting: adequately controlled Pain: adequately controlled Airway Patency, RR, SpO2: stable & adequate BP & HR: stable & adequate Hydration State: stable & adequate Anesthetic Complications: no major complications apparent
--- NOTE | 2017-03-29 15:31 | [facility] Post Operative Brief Note ---
Immediate Operative Summary Operative Date Mar 29, 2017. Pre-Operative Diagnosis Right shoulder adhesive capsulitis Post-Operative Diagnosis Same as preop Procedure(s) Performed Right Shoulder Arthroscopic Capsular Release Surgeon Dr. Calhoun Tray Setter Surgeon(s) Trevin Conway PA-C Estimated Blood Loss 5 mL Findings as above Specimens None Complication(s) None Disposition Recovery Room / PACU
[2017-03-29 15:36] VITALS: BP 120/74; PULSE 75; O2SAT 98
--- NOTE | 2017-03-29 19:08 | OPERATIVE REPORT ---
DATE OF OPERATION: 03/29/2017 PREOPERATIVE DIAGNOSIS: Adhesive capsulitis of the right shoulder. POSTOPERATIVE DIAGNOSIS: Same. PROCEDURE: Right shoulder diagnostic arthroscopy with extensive debridement, lysis of adhesions and manipulation under anesthesia. SURGEON: Dr. Nathaniel Calhoun. PICKER BOX OPERATOR: Jose Conway PA-C, whose assistance was necessary for positioning the arm and helping with instrumentation. ANESTHESIA: General with a right interscalene nerve block. COMPLICATIONS: None. CONDITION: Stable to PACU. INDICATIONS: Marcela is a pleasant 57-year-old female who I did a left shoulder capsular release on about a year ago. She did well with that. Unfortunately, she has developed adhesive capsulitis of her right side. After failing conservative treatment, she has elected to undergo a right arthroscopic capsular release. OPERATION AND FINDINGS: On 03/29/2017 she arrived at [facility] for the above procedure. She was seen in the preoperative holding area and the operative extremity was identified and signed. She was given preoperative antibiotic and a right interscalene nerve block. She was taken back to the operating room, laid on the table in supine position and put under general anesthesia. She was then put into the beachchair position. The right shoulder was prepped and draped in sterile fashion. Time-out was done and the patient and operative extremity was properly identified. On preoperative physical examination, she had about 80 degrees of abduction, but 40 degrees of external rotation and 20 degrees of internal rotation. A gentle manipulation was done under anesthesia to facilitate insertion of the arthroscope. The scope was then placed in the posterior portal. Diagnostic arthroscopy showed no cartilage damage to the humeral head or the glenoid. The biceps tendon was intact and went through a normal size biceps teresa mechanism. The supraspinatus, infraspinatus, teres minor and subscapularis were all checked and intact. There was a lot of redness and scarring of the rotator interval as well as the middle and inferior glenohumeral ligaments. An anterior portal was made. A shaver was used to start debridement of some of the intraarticular structures and the loose fraying tissue. An ablator was then used to do a lysis of adhesion to include complete release of the rotator interval all the way down to the base of the coracoid and to the teresa mechanism of the biceps. Time was then spent releasing the middle glenohumeral ligament and inferior glenohumeral ligament past a 6 o'clock position. Care was taken not to disrupt the subscapularis or the axillary nerve. A shaver was then used to continue debridement and remove all capsular soft tissue remnants. The superior capsule was also debrided. Final arthroscopic images were obtained. Arthroscopic instruments were removed from the shoulder and the shoulder was then manipulated once again under anesthesia. I was able to get full range of motion of the shoulder. The portal sites were closed with 3-0 nylon. The shoulder was then injected with 80 mg of Depo-Medrol and 5 mL of Marcaine. She was then placed in a soft dressing and a regular arm sling. She was then extubated, transferred to a [facility] and taken to the postanesthesia care unit in stable condition. She tolerated the procedure well. I attest to the content of the Intraoperative Record and any orders documented therein. Any exception s are noted below.
== END | disposition home or self-care (01) ==
LOC: X.SURG 09:51
PROVIDERS: ATTEND Orthopaedic Surgery
DX: M75.01 Adhesive capsulitis of right shoulder (principal); E07.9 Disorder of thyroid, unspecified